=== PATIENT | male | born 1985 | race Caucasian/White ===

== ENCOUNTER 2017-03-12 07:54 | Emergency (ER) | payer SELFPAY ==
[~2017-03-12] VITALS: Ht 185.4 cm; Wt 70.3 kg
[2017-03-12 08:10] VITALS: BP 116/73
[2017-03-12 08:21] VITALS: BP 116/73
--- NOTE | 2017-03-12 08:49 | Emergency Room Report ---
History of Present Illness General Chief Complaint: Male Urogenital Problems Source: Patient Present Illness Allergies: Coded Allergies: No Known Allergies (Unverified , 03/12/17) Nursing Documentation-[facility] Past Medical History: No History, Except For Physical Exam Vital Signs Date Time Temp Pulse Resp B/P Pulse Ox O2 Delivery O2 Flow Rate FiO2 03/12/17 08:00 98.1 86 18 127/74 98 Room Air Medical Decision Making Last Vital Signs Date Time Temp Pulse Resp B/P Pulse Ox O2 Delivery O2 Flow Rate FiO2 03/12/17 08:00 98.1 86 18 127/74 98 Room Air Reevaluation Impression I did not see patient Patient arrived and immediately demanding RN give narcotics for pain Refused to give urine When not given narcotics, said he was going to [facility] instead Disposition: ELOPED Referrals: NOT CHOSEN RAMON/,REFERRING (PCP) MICHAEL CRUZ M.D. Mar 12, 2017 08:49
[2017-03-12 08:57] LABS: APPEARANCE,URINE CLEAR; KETONES,URINE NEGATIVE (NEGATIVE); LEUKOCYTE ESTERASE ,URINE 1+ (NEGATIVE); NITRITE,URINE NEGATIVE (NEGATIVE); PH,URINE 6 (4.5-8.0); PROTEIN,URINE 1+ (NEGATIVE); UROBILINOGEN,URINE NORMAL MG/DL (0.0-1.0)
[2017-03-12 09:31] LABS: RBC,URINE 0 /HPF (0 - 0); SQUAMOUS EPITHELIAL CELL,UR OCCASIONAL /LPF (NONE/OCC)
== END 2017-03-12 08:30 | disposition left against medical advice (07) ==
LOC: EMR 08:17
DX: Z53.21 Procedure and treatment not carried out due to patient leaving prior to being seen by health care provider (principal)
CPT/HCPCS: 81003; 99281

== ENCOUNTER 2017-05-02 10:00 | Inpatient (IN) | payer BC ==
[~2017-05-02] VITALS: Ht 185.4 cm; Wt 72.6 kg
[2017-05-02] MEDS ORDERED: Ketorolac 30mg Inj IV ONE (10:30)
[2017-05-02] MEDS ORDERED: Morphine Sulfate 4mg/ml Inj IVP ONE ×2 (10:30→12:00)
[2017-05-02 11:09] LABS: MEAN CORPUSCULAR HEMOGLOBIN 34.9 PG (27.0-31.0); MEAN CORPUSCULAR HGB CONC 36.7 G/DL (32.0-36.0); MEAN CORPUSCULAR VOLUME 95 FL (80-99); MEAN PLATELET VOLUME 8.7 FL (6.5-10.1); PLATELET COUNT 138 K/UL (150-450); RED BLOOD COUNT 4.54 M/UL (4.70-6.10); RED CELL DISTRIBUTION WIDTH 10.4 % (11.6-14.8); WHITE BLOOD COUNT 11.5 K/UL (4.8-10.8)
[2017-05-02] MEDS ORDERED: cefTRIAXone 1 GM in NS 55 ML IVPB ONE (11:15)
[2017-05-02 11:24] LABS: ALANINE AMINOTRANSFERASE 39 U/L (3-41); ALBUMIN/GLOBULIN RATIO 1.1 (1.0-2.7); ANION GAP 14 (5-15); ASPARTATE AMINO TRANSFERASE 24 U/L (5-40); CALCIUM 9.5 mg/dL (8.6-10.2); CARBON DIOXIDE 28 mEQ/L (20-30); CHLORIDE 90 mEQ/L (98-107); CREATININE 1.6 mg/dL (0.7-1.2); HEMOLYSIS 5; POTASSIUM 4.5 mEQ/L (3.4-4.9); SODIUM 132 mEQ/L (135-145); TOTAL PROTEIN 7.2 g/dL (6.6-8.7)
[2017-05-02 11:25] LABS: INR 1.3 (0.9-1.1); PROTHROMBIN TIME 12.7 SEC (9.30-11.50)
[2017-05-02 11:26] LABS: TROPONIN I < 0.30 ng/mL (<=0.30)
--- NOTE | 2017-05-02 11:28 | Diagnostic Imaging Report ---
Indication: Dyspnea Comparison: None A single view chest radiograph was obtained. Findings: There is a vague right upper lobe density with air bronchograms suspicious for pneumonia. These correlate clinically. The hilar mediastinal contour, heart size, osseous structures appear unremarkable. Impression: Suspect pneumonia in the right upper lobe. Please correlate clinically
[2017-05-02 11:36] LABS: BAND NEUTROPHILS % (MANUAL) 9 % (0-8); BASOPHILS % (MANUAL) 0 % (0-2); EOSINOPHILS % (MANUAL) 0 % (0-3); LYMPHOCYTES % (MANUAL) 6 % (20-45); NEUTROPHILS % (MANUAL) 81 % (45-75); PLATELET ESTIMATE ADEQUATE; PLATELET MORPHOLOGY NORMAL; TOTAL CELLS COUNTED 100
[2017-05-02 11:46] LABS: BILIRUBIN,DIRECT 0.4 mg/dL (0.1-0.3)
[2017-05-02] MEDS ORDERED: Albuterol/Ipratropium 3ml neb HHN PRN (12:15)
[2017-05-02] MEDS ORDERED: BUPROPION XL300 MG ORAL (12:18)
[2017-05-02 12:20] VITALS: BP 103/66
--- NOTE | 2017-05-02 12:29 | Emergency Room Report ---
History of Present Illness General Chief Complaint: Pain Source: Patient Present Illness HPI Patient with 3 days of severe R upper back pain. Constant and somewhat pleuritic - /10. No productive cough. Had sweats last night he associates with pain. He took advil with minimal help. Pain is inside of shoulder blade. No NVD. No neck pain or CHAO. No dysuria. No rashes. He's never had pain like this before. 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 History of HIV. And Truvada but has been off for multiple months. Several weeks ago he gave that to his HIV doctor but hasn't heard back from him yet. His doctor's name is Elia Osuna. 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 Nursing Documentation: PMH: Agreed, PSxH: Agreed Nursing Documentation-PMH Past Medical History: No Stated History Review of Systems All Other Systems: negative except mentioned in HPI Physical Exam Vital Signs Date Time Temp Pulse Resp B/P (MAP) Pulse Ox O2 Delivery O2 Flow Rate FiO2 05/02/17 10:03 99.5 124 16 107/61 96 Room Air Sp02 EP Interpretation: reviewed, normal General Appearance: well appearing, no apparent distress, GCS 15 Head: normocephalic Eyes: bilateral eye normal inspection ENT: moist mucus membranes Neck: supple Respiratory: chest non-tender, lungs clear, normal breath sounds Cardiovascular #1: tachycardia Cardiovascular #2: 2+ radial (R) Gastrointestinal: normal inspection, normal bowel sounds, non tender, no mass, non-distended, scaphoid Musculoskeletal: back normal, gait/station normal, normal range of motion, no calf tenderness Neurologic: alert, oriented x3, grossly normal Psychiatric: mood/affect normal - in pain Skin: normal inspection, warm/dry, diaphoresis - minimal Medical Decision Making Diagnostic Impression: Primary Impression: Pneumonia Qualified Codes: J18.1 - Lobar pneumonia, unspecified organism Additional Impressions: Immunocompromised Renal insufficiency ER Course Patient with R upper back pain. With review of VS consideration of possible infectious etiology. DDx: muscle spasm, pneumonia, PE, bronchitis amongst others. Concern as patient off of HIV meds several months. Evaluation with BC , labs including lactic acid, EKG, CXR. Treatment with analgesia and IV hydration. CXR with RUL infiltrate. Antibiotics begun. EKG sinus tach. Labs with elevated WBC with L shift and elevated creatinine. Normal lactic acid. Patient given repeated doses of analgesics as still with pain. Improved with treatment. Admit med Dr. Oates Laboratory Tests Test 05/02/17 10:57 White Blood Count 11.5 K/UL (4.8-10.8) H Red Blood Count 4.54 M/UL (4.70-6.10) L Hemoglobin 15.8 G/DL (14.2-18.0) Hematocrit 43.1 % (42.0-52.0) Mean Corpuscular Volume 95 FL (80-99) Mean Corpuscular Hemoglobin 34.9 PG (27.0-31.0) H Mean Corpuscular Hemoglobin Concent 36.7 G/DL (32.0-36.0) H Red Cell Distribution Width 10.4 % (11.6-14.8) L Platelet Count 138 K/UL (150-450) L Mean Platelet Volume 8.7 FL (6.5-10.1) Neutrophils (%) (Auto) % (45.0-75.0) Lymphocytes (%) (Auto) % (20.0-45.0) Monocytes (%) (Auto) % (1.0-10.0) Eosinophils (%) (Auto) % (0.0-3.0) Basophils (%) (Auto) % (0.0-2.0) Differential Total Cells Counted 100 Neutrophils % (Manual) 81 % (45-75) H Lymphocytes % (Manual) 6 % (20-45) L Monocytes % (Manual) 4 % (1-10) Eosinophils % (Manual) 0 % (0-3) Basophils % (Manual) 0 % (0-2) Band Neutrophils 9 % (0-8) H Platelet Estimate Adequate Platelet Morphology Normal Red Blood Cell Morphology Normal Prothrombin Time 12.7 SEC (9.30-11.50) H Prothrombin Time INR 1.3 (0.9-1.1) H PTT 35 SEC (23-33) H Sodium Level 132 mEQ/L (135-145) L Potassium Level 4.5 mEQ/L (3.4-4.9) Chloride Level 90 mEQ/L (98-107) L Carbon Dioxide Level 28 mEQ/L (20-30) Anion Gap 14 (5-15) Blood Urea Nitrogen 23 mg/dL (7-23) Creatinine 1.6 mg/dL (0.7-1.2) H Estimate Glomerular Filtration Rate 50.0 mL/min (>60) Glucose Level 136 mg/dL (74-106) H Lactic Acid Level 1.70 mmol/L (0.66-2.22) Calcium Level 9.5 mg/dL (8.6-10.2) Total Bilirubin 1.3 mg/dL (0.0-1.2) H Direct Bilirubin 0.4 mg/dL (0.1-0.3) H Aspartate Amino Transferase (AST) 24 U/L (5-40) Alanine Aminotransferase (ALT) 39 U/L (3-41) Alkaline Phosphatase 106 U/L (40-129) Total Creatine Kinase 42 U/L (38-174) Troponin I < 0.30 ng/mL (<=0.30) Pro-B-Type Natriuretic Peptide 237 pg/mL (0-125) H Total Protein 7.2 g/dL (6.6-8.7) Albumin 3.8 g/dL (3.5-5.2) Globulin 3.4 g/dL Albumin/Globulin Ratio 1.1 (1.0-2.7) EKG Diagnostic Results Rate: tachycardiac ST Segments: no acute changes Rhythm Strip Diag. Results EP Interpretation: yes Rhythm: no PVC's, no ectopy, other - ST Chest X-Ray Diagnostic Results Chest X-Ray Diagnostic Results : Chest X-Ray Ordered: Yes # of Views/Limited/Complete: 1 View Indication: Other Interpretation: no effusion, no pneumothorax, other - RUL infiltrate Impression: Other Electronically Signed by: Electronically signed by Golden Reyes MD Last Vital Signs Date Time Temp Pulse Resp B/P (MAP) Pulse Ox O2 Delivery O2 Flow Rate FiO2 05/02/17 20:00 99.6 102 20 107/60 98 Room Air Status: improved Disposition: ADMITTED INPATIENT Condition: Serious Referrals: NON PHYSICIAN (PCP) Golden Reyes M.D. May 02, 2017 12:29
[2017-05-02] MEDS ORDERED: Hydromorphone 0.5mg/0.5ml inj IVP ONE (12:30)
[2017-05-02] MEDS ORDERED: Miralax 17gm pkt ORAL PRN (13:00)
[2017-05-02 13:48] LABS: URIC ACID 5.7 mg/dL (3.0-7.5)
[2017-05-02] MEDS: Morphine Sulfate 4mg/ml Inj IVP PRN ×2 (14:00→21:19)
[2017-05-02 16:00] VITALS: BP 96/53
[2017-05-02] MEDS: Vancomycin 1 GM in D5W 275 ML IVPB SCH (17:17)
[2017-05-02 20:00] VITALS: BP 107/60
[2017-05-02] MEDS: Cefepime HCl 2 GM in D5W 110 ML IV SCH (21:19)
[2017-05-02] MEDS: Heparin 5000 units/ml inj SUBQ SCH (21:21)
[2017-05-02 22:42] LABS: APPEARANCE,URINE SLIGHTLY CLOUDY; KETONES,URINE NEGATIVE (NEGATIVE); LEUKOCYTE ESTERASE ,URINE 1+ (NEGATIVE); NITRITE,URINE POSITIVE (NEGATIVE); PH,URINE 5 (4.5-8.0); PROTEIN,URINE 2+ (NEGATIVE); UROBILINOGEN,URINE 4 MG/DL (0.0-1.0)
[2017-05-02 22:50] LABS: AMORPHOUS SEDIMENT,UR FEW /LPF; BACTERIA,URINE MODERATE /HPF
[2017-05-02 22:51] LABS: ICTOTEST NEGATIVE
[2017-05-03] VITALS: BP 112/57
[2017-05-03 04:00] VITALS: BP 118/60
[2017-05-03] MEDS: Vancomycin 1 GM in D5W 275 ML IVPB SCH ×2 (04:00→16:40)
[2017-05-03] MEDS: Morphine Sulfate 4mg/ml Inj IVP PRN ×4 (06:38→21:04)
[2017-05-03 07:27] LABS: EOSINOPHILS % (AUTO) 4.5 % (0.0-3.0); LYMPHOCYTES % (AUTO) 7.7 % (20.0-45.0); MEAN CORPUSCULAR HEMOGLOBIN 34.5 PG (27.0-31.0); MEAN CORPUSCULAR HGB CONC 36.5 G/DL (32.0-36.0); MEAN CORPUSCULAR VOLUME 94 FL (80-99); MEAN PLATELET VOLUME 8.3 FL (6.5-10.1); MONOCYTES % (AUTO) 9.6 % (1.0-10.0); NEUTROPHILS % (AUTO) 77.2 % (45.0-75.0); PLATELET COUNT 100 K/UL (150-450); RED BLOOD COUNT 3.58 M/UL (4.70-6.10); RED CELL DISTRIBUTION WIDTH 10.5 % (11.6-14.8); WHITE BLOOD COUNT 6.6 K/UL (4.8-10.8)
[2017-05-03 08:00] VITALS: BP 103/61
[2017-05-03] MEDS: Cefepime HCl 2 GM in D5W 110 ML IV SCH (08:22)
[2017-05-03 08:32] LABS: ANION GAP 14 (5-15); CARBON DIOXIDE 25 mEQ/L (20-30); CHLORIDE 94 mEQ/L (98-107); GLOMERULAR FILTRATION RATE > 60 mL/min (>60); HEMOLYSIS 0; PHOSPHORUS 1.8 mg/dL (2.5-4.8); POTASSIUM 3.8 mEQ/L (3.4-4.9); SODIUM 133 mEQ/L (135-145)
[2017-05-03] MEDS: Heparin 5000 units/ml inj SUBQ SCH ×2 (09:00→21:00)
--- NOTE | 2017-05-03 10:13 | Diagnostic Imaging Report ---
Indication:Elevated Bun and Creatinine. Technique: Grayscale and duplex Doppler imaging of the kidneys performed. Comparison: None Findings: The size, contour, and echogenicity of both kidneys are within normal limits. Left kidney is 12 CM per the right kidney is about 11 CM in length. There is no hydronephrosis. The IVC and urinary bladder are unremarkable. Impression: Negative exam
[2017-05-03 12:00] VITALS: BP 112/67
[2017-05-03 16:00] VITALS: BP 104/62
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
--- NOTE | 2017-05-03 16:57 | Diagnostic Imaging Report ---
Indication: Dyspnea Technique: Continuous helical transaxial imaging of the chest was obtained from the thoracic inlet to the upper abdomen after intravenous nonionic contrast administration. Coronal 2-D reformats were also obtained. Total Dose length Product (DLP): [address] Dose Index Volume (CTDIvol): 8, 97, 17 mGy Comparison: There is dense right upper lobe consolidation consistent with pneumonia. Small infiltrate also noted at the right lung base. Mild posterior right basilar atelectasis demonstrated with a trace right pleural effusion. The left lung is clear. No adenopathy identified. The visualized part of the upper abdomen is unremarkable. Impression: Right upper lobe pneumonia Findings: The CT scanner at [facility] is accredited by the [employer] and the scans are performed using dose optimization techniques as appropriate to a performed exam including Automatic Exposure control.
--- NOTE | 2017-05-03 18:03 | Cardiology Report ---
APPROVED REPORT EKG Measurement Heart [id number] Sinus tachycardia Otherwise normal ECG
[2017-05-03 20:00] VITALS: BP 108/65
--- NOTE | 2017-05-03 21:58 | History and Physical ---
History of Present Illness General Date patient seen: May 02, 2017 Reason for Hospitalization: Pain Present Illness HPI 32 year old male without any PMHx presented to ER with CC of right upper back pain and dry cough for a few days. Allergies: Coded Allergies: No Known Allergies (Unverified , 03/12/17) Medication History Scheduled Bupropion Hcl* (Wellbutrin*), 450 MG ORAL DAILY, (Reported) Patient History Healthcare decision maker Resuscitation status Advanced Directive on File Review of Systems Respiratory: Reports: cough All Other Systems: negative except mentioned in HPI Physical Exam General Appearance: WD/WN, no apparent distress Lines, tubes and drains: peripheral, central line HEENT: normocephalic, atraumatic Neck: non-tender, normal alignment Respiratory/Chest: chest wall non-tender, lungs clear Breasts: no masses Cardiovascular/Chest: normal peripheral pulses Abdomen: normal bowel sounds Genitourinary/Rectal: normal genital exam Skin Exam: normal pigmentation 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 Last 24 Hour Vital Signs Date Time Temp Pulse Resp B/P (MAP) Pulse Ox O2 Delivery O2 Flow Rate FiO2 05/03/17 20:00 99.3 98 18 108/65 95 Room Air 05/03/17 16:00 98.4 86 19 104/62 98 Room Air 05/03/17 12:00 98.8 97 20 112/67 98 Room Air 05/03/17 08:00 99.5 101 19 103/61 97 Room Air 05/03/17 04:00 99.2 105 21 118/60 98 Room Air 05/03/17 00:00 99.4 111 22 112/57 97 Room Air Intake and Output 05/03/17 05/04/17 19:00 07:00 # Voids 1 Laboratory Tests Test 05/02/17 22:10 05/03/17 04:35 Urine Color Brown Urine Appearance Slightly cloudy Urine pH 5 (4.5-8.0) Urine Specific [place] 1.025 (1.005-1.035) Urine Protein 2+ (NEGATIVE) H Urine Glucose (UA) Negative (NEGATIVE) Urine Ketones Negative (NEGATIVE) Urine Occult Blood 1+ (NEGATIVE) H Urine Nitrite Positive (NEGATIVE) H Urine Bilirubin 1+ (NEGATIVE) H Urine Ictotest Negative Urine Urobilinogen 4 MG/DL (0.0-1.0) H Urine Leukocyte Esterase 1+ (NEGATIVE) H Urine RBC 10-15 /HPF (0 - 0) H Urine WBC 5-10 /HPF (0 - 0) H Urine Squamous Epithelial Cells None /LPF (NONE/OCC) Urine Amorphous Sediment Few /LPF (NONE) H Urine Bacteria Moderate /HPF (NONE) H Urine Fine Granular Casts 2-4 /LPF (NONE) H Urine Eosinophils None seen Urine Random Sodium 10 mmol/L Urine Potassium Timed 98 mmol/L White Blood Count Pending Red Blood Count 3.58 M/UL (4.70-6.10) L Hemoglobin 12.3 G/DL (14.2-18.0) L Hematocrit 33.8 % (42.0-52.0) L Mean Corpuscular Volume 94 FL (80-99) Mean Corpuscular Hemoglobin 34.5 PG (27.0-31.0) H Mean Corpuscular Hemoglobin Concent 36.5 G/DL (32.0-36.0) H Red Cell Distribution Width 10.5 % (11.6-14.8) L Platelet Count 100 K/UL (150-450) L Mean Platelet Volume 8.3 FL (6.5-10.1) Neutrophils (%) (Auto) 77.2 % (45.0-75.0) H Lymphocytes (%) (Auto) 7.7 % (20.0-45.0) L Monocytes (%) (Auto) 9.6 % (1.0-10.0) Eosinophils (%) (Auto) 4.5 % (0.0-3.0) H Basophils (%) (Auto) 1.0 % (0.0-2.0) Lymphocytes Pending Sodium Level 133 mEQ/L (135-145) L Potassium Level 3.8 mEQ/L (3.4-4.9) Chloride Level 94 mEQ/L (98-107) L Carbon Dioxide Level 25 mEQ/L (20-30) Anion Gap 14 (5-15) Blood Urea Nitrogen 17 mg/dL (7-23) Creatinine 1.0 mg/dL (0.7-1.2) Estimat Glomerular Filtration Rate > 60 mL/min (>60) Glucose Level 112 mg/dL (74-106) H Calcium Level 9.0 mg/dL (8.6-10.2) Phosphorus Level 1.8 mg/dL (2.5-4.8) L Albumin 2.9 g/dL (3.5-5.2) L Percent CD3 Cells Pending Absolute CD3 Count Pending Percent CD4 Cells Pending Absolute CD4 Count Pending T-Lymphocyte CD4/CD8 Ratio Pending Percent CD8 Cells Pending Absolute CD8 Count Pending Coccidioides Antibody (Comp Fix) Pending Cryptococcus Antigen Pending HIV-1 RNA (PCR) log10 Value Pending HIV-1 RNA Ultraquantitative (PCR) Pending HIV (1&2) Antibody Rapid Negative (NEGATIVE) Height (Feet): 6 Height (Inches): 1.00 Weight (Pounds): 160 Medications Current Medications Medications (Trade) Dose Ordered Sig/Saúl Route PRN Reason Start Time Stop Time Status Last Admin Dose Admin Acetaminophen (Tylenol) 650 mg Q4H PRN ORAL T>100.5 05/02/17 12:15 06/01/17 12:14 Albuterol/ Ipratropium (DuoNeb 0.5-3(2.5)mg/3ml) 3 ml Q4H PRN HHN Shortness of Breath 05/02/17 12:15 05/07/17 12:14 Dextrose (Dextrose 50%) STAT PRN IV Hypoglycemia 05/02/17 13:00 06/01/17 12:59 Heparin Sodium (Porcine) (Heparin 5000 units/ml) 5,000 units EVERY 12 HOURS SUBQ 05/02/17 21:00 06/01/17 20:59 05/02/17 21:21 Levofloxacin (Levaquin) 750 mg QHS ORAL 05/03/17 21:00 05/10/17 20:59 05/03/17 21:04 Morphine Sulfate (Morphine Sulfate) 2 mg Q4H PRN IVP Severe Pain (Pain Scale 7-10) 05/02/17 13:00 05/09/17 12:59 05/03/17 21:04 Ondansetron HCl (Zofran) 4 mg Q6H PRN IVP Nausea & Vomiting 05/02/17 13:00 06/01/17 12:59 Polyethylene Glycol (Miralax) 17 gm DAILYPRN PRN ORAL Constipation 05/02/17 13:00 06/01/17 12:59 Assessment/Plan Problem List: (1) Pneumonia ICD Codes: J18.9 - Pneumonia, unspecified organism SNOMED: 845326258 Qualifiers: Qualified Codes: J18.1 - Lobar pneumonia, unspecified organism (2) Pleuritis ICD Codes: R09.1 - Pleurisy SNOMED: 897535822 Assessment/Plan respiratory treatment IV abx check sputum TARIQ MILLARD May 03, 2017 21:58
--- NOTE | 2017-05-03 21:59 | Pulmonology Progress Note ---
Assessment/Plan Problems: (1) Pneumonia (2) Pleuritis Assessment/Plan CT of chest check sputum abx check HIV Subjective ROS Limited/Unobtainable: No Constitutional: Reports: no symptoms HEENT: Repors: no symptoms Respiratory: Reports: no symptoms Allergies: Coded Allergies: No Known Allergies (Unverified , 03/12/17) Objective Last 24 Hour Vital Signs Date Time Temp Pulse Resp B/P (MAP) Pulse Ox O2 Delivery O2 Flow Rate FiO2 05/03/17 20:00 99.3 98 18 108/65 95 Room Air 05/03/17 16:00 98.4 86 19 104/62 98 Room Air 05/03/17 12:00 98.8 97 20 112/67 98 Room Air 05/03/17 08:00 99.5 101 19 103/61 97 Room Air 05/03/17 04:00 99.2 105 21 118/60 98 Room Air 05/03/17 00:00 99.4 111 22 112/57 97 Room Air Intake and Output 05/03/17 05/04/17 19:00 07:00 # Voids 1 General Appearance: WD/WN HEENT: normocephalic Respiratory/Chest: chest wall non-tender, lungs clear Cardiovascular: normal peripheral pulses, normal rate Abdomen: normal bowel sounds, soft, non tender Extremities: no clubbing 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, no motor/sensory deficits Laboratory Tests 05/02/17 22:10: Urine Color Brown, Urine Appearance Slightly cloudy, Urine pH 5, Urine Specific [place] 1.025, Urine Protein 2+H, Urine Glucose (UA) Negative, Urine Ketones Negative, Urine Occult Blood 1+H, Urine Nitrite PositiveH, Urine Bilirubin 1+H, Urine Ictotest Negative, Urine Urobilinogen 4H, Urine Leukocyte Esterase 1+H, Urine RBC 10-15H, Urine WBC 5-10H, Urine Squamous Epithelial Cells None, Urine Amorphous Sediment FewH, Urine Bacteria ModerateH, Urine Fine Granular Casts 2- 4H, Urine Eosinophils None seen, Urine Random Sodium 10, Urine Potassium Timed 98 05/03/17 04:35: White Blood Count [Pending], Red Blood Count 3.58L, Hemoglobin 12.3L, Hematocrit 33.8L, Mean Corpuscular Volume 94, Mean Corpuscular Hemoglobin 34.5H , Mean Corpuscular Hemoglobin Concent 36.5H, Red Cell Distribution Width 10.5L, Platelet Count 100L, Mean Platelet Volume 8.3, Neutrophils (%) (Auto) 77.2H, Lymphocytes (%) (Auto) 7.7L, Monocytes (%) (Auto) 9.6, Eosinophils (%) (Auto) 4.5H, Basophils (%) (Auto) 1.0, Lymphocytes [Pending], Sodium Level 133L, Potassium Level 3.8, Chloride Level 94L, Carbon Dioxide Level 25, Anion Gap 14, Blood Urea Nitrogen 17, Creatinine 1.0, Estimat Glomerular Filtration Rate > 60 , Glucose Level 112H, Calcium Level 9.0, Phosphorus Level 1.8L, Albumin 2.9L, Percent CD3 Cells [Pending], Absolute CD3 Count [Pending], Percent CD4 Cells [ Pending], Absolute CD4 Count [Pending], T-Lymphocyte CD4/CD8 Ratio [Pending], Percent CD8 Cells [Pending], Absolute CD8 Count [Pending], Coccidioides Antibody (Comp Fix) [Pending], Cryptococcus Antigen [Pending], HIV-1 RNA (PCR) log10 Value [Pending], HIV-1 RNA Ultraquantitative (PCR) [Pending], HIV (1&2) Antibody Rapid Negative Current Medications Medications (Trade) Dose Ordered Sig/Saúl Route PRN Reason Start Time Stop Time Status Last Admin Dose Admin Acetaminophen (Tylenol) 650 mg Q4H PRN ORAL T>100.5 05/02/17 12:15 06/01/17 12:14 Albuterol/ Ipratropium (DuoNeb 0.5-3(2.5)mg/3ml) 3 ml Q4H PRN HHN Shortness of Breath 05/02/17 12:15 05/07/17 12:14 Dextrose (Dextrose 50%) STAT PRN IV Hypoglycemia 05/02/17 13:00 06/01/17 12:59 Heparin Sodium (Porcine) (Heparin 5000 units/ml) 5,000 units EVERY 12 HOURS SUBQ 05/02/17 21:00 06/01/17 20:59 05/02/17 21:21 Levofloxacin (Levaquin) 750 mg QHS ORAL 05/03/17 21:00 05/10/17 20:59 05/03/17 21:04 Morphine Sulfate (Morphine Sulfate) 2 mg Q4H PRN IVP Severe Pain (Pain Scale 7-10) 05/02/17 13:00 05/09/17 12:59 05/03/17 21:04 Ondansetron HCl (Zofran) 4 mg Q6H PRN IVP Nausea & Vomiting 05/02/17 13:00 06/01/17 12:59 Polyethylene Glycol (Miralax) 17 gm DAILYPRN PRN ORAL Constipation 05/02/17 13:00 06/01/17 12:59 TARIQ MILLARD May 03, 2017 21:59
[2017-05-04] VITALS: BP 110/70
[2017-05-04 04:56] VITALS: BP 101/58
[2017-05-04] MEDS: Morphine Sulfate 4mg/ml Inj IVP PRN ×2 (07:28→12:37)
[2017-05-04 08:05] VITALS: BP 110/70
[2017-05-04] MEDS: Heparin 5000 units/ml inj SUBQ SCH (09:00)
[2017-05-04 11:56] VITALS: BP 110/61
--- NOTE | 2017-05-04 15:07 | Pulmonology Progress Note ---
Assessment/Plan Problems: (1) Pneumonia (2) Pleuritis Assessment/Plan CT of chest check sputum abx afebrile wbc normal Subjective ROS Limited/Unobtainable: No Interval Events: feeling better, still some chest pain Allergies: Coded Allergies: No Known Allergies (Unverified , 03/12/17) Objective Last 24 Hour Vital Signs Date Time Temp Pulse Resp B/P (MAP) Pulse Ox O2 Delivery O2 Flow Rate FiO2 05/04/17 11:56 98.4 81 21 110/61 97 Room Air 05/04/17 08:05 98.2 71 21 110/70 97 Room Air 05/04/17 04:56 98.1 94 18 101/58 97 Room Air 05/04/17 00:00 98.9 94 18 110/70 Room Air 05/03/17 20:00 99.3 98 18 108/65 95 Room Air 05/03/17 16:00 98.4 86 19 104/62 98 Room Air General Appearance: WD/WN HEENT: normocephalic, anicteric Respiratory/Chest: chest wall non-tender, lungs clear Abdomen: normal bowel sounds, soft, non tender Genitourinary: normal external genitalia Extremities: no clubbing Neurologic/Psychiatric: transformation analyst II-XII grossly normal Lymphatic: no neck adenopathy Microbiology Date/Time Source Procedure Growth Status 05/02/17 10:50 Blood Blood Culture - Preliminary NO GROWTH AFTER 24 HOURS Resulted 05/02/17 10:50 Blood Blood Culture - Preliminary NO GROWTH AFTER 24 HOURS Resulted 05/04/17 05:30 Nasal Nares Influenza Types A,B Antigen (HORTENCIA) - Final Complete 05/03/17 12:30 Sputum Induced Gram Stain - Final Resulted 05/03/17 12:30 Sputum Induced Sputum Culture Pending Resulted 05/02/17 22:10 Urine,Clean Catch Urine Culture - Preliminary NO GROWTH Resulted Laboratory Tests 05/04/17 05:30: Urine Legionella Antigen [Pending] Current Medications Medications (Trade) Dose Ordered Sig/Saúl Route PRN Reason Start Time Stop Time Status Last Admin Dose Admin Acetaminophen (Tylenol) 650 mg Q4H PRN ORAL T>100.5 05/02/17 12:15 06/01/17 12:14 Albuterol/ Ipratropium (DuoNeb 0.5-3(2.5)mg/3ml) 3 ml Q4H PRN HHN Shortness of Breath 05/02/17 12:15 05/07/17 12:14 Dextrose (Dextrose 50%) STAT PRN IV Hypoglycemia 05/02/17 13:00 06/01/17 12:59 Heparin Sodium (Porcine) (Heparin 5000 units/ml) 5,000 units EVERY 12 HOURS SUBQ 05/02/17 21:00 06/01/17 20:59 05/02/17 21:21 Levofloxacin (Levaquin) 750 mg QHS ORAL 05/03/17 21:00 05/10/17 20:59 05/03/17 21:04 Morphine Sulfate (Morphine Sulfate) 2 mg Q4H PRN IVP Severe Pain (Pain Scale 7-10) 05/02/17 13:00 05/09/17 12:59 05/04/17 12:37 Ondansetron HCl (Zofran) 4 mg Q6H PRN IVP Nausea & Vomiting 05/02/17 13:00 06/01/17 12:59 Polyethylene Glycol (Miralax) 17 gm DAILYPRN PRN ORAL Constipation 05/02/17 13:00 06/01/17 12:59 TARIQ MILLARD May 04, 2017 15:07
[2017-05-04] MEDS ORDERED: LEVOFLOXACIN500 MG ORAL (15:09)
[2017-05-04] MEDS ORDERED: IBUPROFEN600 MG ORAL (15:10)
[2017-05-04] MEDS ORDERED: NS 500ML IV ONE (15:45)
[2017-05-04] MEDS ORDERED: Tubing IV Secondary IV ONE (15:45)
--- NOTE | 2017-05-05 15:41 | Discharge Summary ---
Discharge Summary Hospital Course Date of Admission May 02, 2017 at 11:16 Date of Discharge May 04, 2017 at 15:46 Admitting Diagnosis pneumonia HPI Desi Christianson is a 32 year old male who was admitted on May 02, 2017 at 11:16 for Pneumonia Hospital Course [id number] Discharge Discharge Disposition Patient was discharged to Home (01) Discharge Diagnoses: Neli Archer NP May 05, 2017 15:41
--- NOTE | 2017-05-06 06:31 | Discharge Summary 2 SIG ---
DATE OF ADMISSION: 05/02/2017 DATE OF DISCHARGE: 05/04/2017 EMPLOYEE BENEFITS MANAGER: Andra Mello M.D. Brief Hospital Course: The patient is a 32-year-old male without any medical history, presented to ED complaining of right upper back pain with dry cough that started a few days ago. On evaluation at ED, chest x-ray showed right upper lung infiltrate. EKG was in sinus tachycardia. Blood work showed elevated WBC with left shift. Lactic acid was 1.7. Creatinine was elevated to 1.6. He was admitted for pneumonia and was seen by Infectious Diseases specialist. The patient was taking HIV prep with Truvada but has been off for few months. He recently returned in mid April after a visit from [place]. CT of the chest showed right upper lobe pneumonia. HIV screen was negative. He was initially given IV vancomycin and cefepime. He was given IV hydration. Renal ultrasound was negative. Acute kidney injury eventually resolved. Influenza A and B was negative. Sputum culture showed normal respiratory kain. Urine and blood culture did not isolate any growth. He was eventually discharged home. Advised to continue p.o. levofloxacin 750 mg for five days. FINAL DIAGNOSES: 1. Pneumonia. 2. Pleuritis. 3. Chest pain, likely secondary to pneumonia. 4. Acute kidney injury, resolved. 5. Hyponatremia. 6. Major depressive disorder. DISPOSITION: The patient was discharged home. DISCHARGE MEDICATIONS: Refer to medication list. FOLLOWUP: The patient was advised to follow up with PMD in a week. Maira Oates M.D. I have been assigned to dictate discharge summary on this account and I was not involved in the patient's management. Neli Archer N.P. DR: NIKOS JOB#: [id number] CC: ROCKY
[2017-05-09 00:39] LABS: CD3 ABSOLUTE 456 /uL (622-2402); CD4 ABSOLUTE 258 /uL (359-1519); CD8 ABSOLUTE 190 /uL (109-897); CRYPTOCOCCAL ANTIGEN SERUM Negative (Negative); HIV RNA PCR QUANT <20 copies/mL (.); LYMPHOCYTES ABSOLUTE 0.7 x10E3/uL (0.7-3.1); LYMPHS 10 % (Not Estab.); WBC 6.8 x10E3/uL (3.4-10.8)
== END 2017-05-04 15:46 | disposition home or self-care (01) | DRG 194 ==
LOC: EMR 10:38 → 4E 11:16 → EDBEDREQ 12:05 → 4E 13:23
DX: J18.9 Pneumonia, unspecified organism (principal); N17.9 Acute kidney failure, unspecified; E87.1 Hypo-osmolality and hyponatremia; R09.1 Pleurisy; F32.9 Major depressive disorder, single episode, unspecified
CPT/HCPCS: 36415; 71010; 71260; 76775; 80053; 80069; 81001; 82164; 82248; 82550; 83605; 83880; 84133; 84300; 84484; 84550; 85007; 85025; 85610; 85730; 86360; 86635; 86703; 86710; 87040; 87070; 87086; 87205; 87449; 87536; 89050; 93005; 99285; J2405